=== PATIENT | male | born 1980 | race Caucasian/White ===

== ENCOUNTER 2025-04-16 14:21 | Emergency (ER) | payer BC, OTHER ==
[2025-04-16 14:33] VITALS: RESP 20; TEMP 98.4; BMI 32.3
[2025-04-16] MEDS ORDERED: DIPHTH,PERTUSS(ACELL),TET 0.5 ML DISP.SYRIN IM ONE ×5 (15:25→15:28)
[2025-04-16] MEDS ORDERED: ACETAMINOPHEN 325 MG TABLET (FP) ONE (15:25)
[2025-04-16] MEDS ORDERED: LIDOCAINE HCL 1%, 10 MG/ML (20ML VIAL) ONE (15:28)
[2025-04-16] MEDS: ACETAMINOPHEN 500 MG TABLET (FP) PO ONE (15:30)
[2025-04-16] MEDS: DIPHTH,PERTUSS(ACELL),TET 0.5 ML DISP.SYRIN IM ONE (15:33)
[2025-04-16] MEDS: LIDOCAINE HCL 1%, 10 MG/ML (50 mL VIAL) SQ ONE (15:35)
[2025-04-16] MEDS ORDERED: BACITRACIN ZINC 15 GM TUBE TOPICAL OINTMENT ONE (17:45)
[2025-04-16] MEDS: BACITRACIN ZINC 15 GM TUBE TOPICAL OINTMENT TP ONE (17:47)
[2025-04-16 17:51] VITALS: BP 139/91; PULSE 80
[2025-04-16] MEDS ORDERED: AMOX TR/POT CLAV 875MG/125MG TABLETS (FP) ONE (18:21)
[2025-04-16] MEDS: AMOX TR/POT CLAV 875MG/125MG TABLETS (FP) PO ONE (18:24)
== END 2025-04-16 18:27 | disposition home or self-care (01) ==
LOC: JER 14:21
PROC: 0HQGXZZ Repair Left Hand Skin, External Approach (ICD-10-PCS; principal; 2025-04-16)
PROC: 3E0234Z Introduction of Serum, Toxoid and Vaccine into Muscle, Percutaneous Approach (ICD-10-PCS; 2025-04-16)
DX: S61.213A Laceration without foreign body of left middle finger without damage to nail, initial encounter (principal); Z23 Encounter for immunization; W31.2XXA Contact with powered woodworking and forming machines, initial encounter; Y92.009 Unspecified place in unspecified non-institutional (private) residence as the place of occurrence of the external cause
CPT/HCPCS: 73140-TC-LT-FY; 90715; 99284-25